=== PATIENT | female | born 1990 | race Caucasian/White ===

== ENCOUNTER 2019-05-15 03:18 | Emergency (ER) | payer BC ==
[~2019-05-15] VITALS: Ht 160 cm; Wt 56.7 kg
--- NOTE | 2019-05-15 03:30 | NUR ---
ED Nurse Note: Walk-in patient presents with complaints of muscle spasms of the bilateral legs 8/10 on pain scale.
[2019-05-15 03:31] VITALS: BP 97/70
--- NOTE | 2019-05-15 03:40 | Emergency Room Report ---
History of Present Illness General Chief Complaint: Pain Source: Patient Present Illness HPI Is a 28-year-old female with history of anxiety. She presents with chief complaint of left flank pain. Said it felt like her muscles throbbing aching in nature. Localized to the neck of her left leg. No trauma. Onset for 2 days. Yesterday was on the right side. Now to the left. No recent travel. No swelling. Pain is 8 out of 10. Allergies: Coded Allergies: No Known Allergies (Unverified , 05/15/19) Patient History Past Medical History: see triage record, old chart reviewed, psych hx Past Surgical History: none Pertinent Family History: none Social History: Denies: smoking Last Menstrual Period: 03/31/19 Now: No Immunizations: other Reviewed Nursing Documentation: PMH: Agreed; PSxH: Agreed Nursing Documentation-PMH Past Medical History: No Stated History Review of Systems Eye: Denies: eye pain, blurred vision ENT: Denies: ear pain, nose congestion, throat swelling Respiratory: Denies: cough, shortness of breath Cardiovascular: Denies: chest pain, palpitations Gastrointestinal: Denies: abdominal pain, diarrhea, nausea, vomiting Musculoskeletal: Denies: back pain, joint pain Skin: Denies: rash Neurological: Denies: headache, numbness Endocrine: Denies: increased thirst, increased urine Hematologic/Lymphatic: Denies: easy bruising All Other Systems: negative except mentioned in HPI Physical Exam Vital Signs Date Time Temp Pulse Resp B/P (MAP) Pulse Ox O2 Delivery O2 Flow Rate FiO2 05/15/19 03:21 97.5 88 18 97/70 (79) 99 Room Air Vitals unremarkable Sp02 EP Interpretation: reviewed, normal General Appearance: well appearing, no apparent distress, alert Head: normocephalic, atraumatic Eyes: bilateral eye PERRL, bilateral eye EOMI ENT: hearing grossly normal, normal pharynx Neck: full range of motion, supple, no meningismus Respiratory: chest non-tender, lungs clear, normal breath sounds Cardiovascular #1: regular rate, rhythm, no murmur Gastrointestinal: normal bowel sounds, non tender, no mass, no organomegaly, no bruit, non-distended Musculoskeletal: back normal, gait/station normal, normal range of motion Psychiatric: mood/affect normal Skin: warm/dry Medical Decision Making Diagnostic Impression: Primary Impression: Pain of left lower extremity ER Course Patient presents with left leg pain. She complaining of muscle cramping throbbing pain. I want to check blood work to make sure there is no rhabdo or potential for DVT. Patient refused blood work because she says she is scared of needles. She got up and left. She is competent to make that decision. Clinically and on physical exam, unlikely to be DVT. No evidence of any infection. Last Vital Signs Date Time Temp Pulse Resp B/P (MAP) Pulse Ox O2 Delivery O2 Flow Rate FiO2 05/15/19 03:31 97.5 78 18 97/70 99 Room Air Status: unchanged Disposition: AGAINST MEDICAL ADVICE Condition: Stable Referrals: NOT CHOSEN IPA/,REFERRING (PCP) Mikey Amador MD May 15, 2019 03:40
[2019-05-15] MEDS ORDERED: Ketorolac 30mg Inj IV ONE (03:45)
--- NOTE | 2019-05-15 03:49 | NUR ---
ELOPEMENT: Patient refused blood draw and to wait for discharge paper work. She also declined signing the AMA form before departing.
[2019-05-15 03:50] VITALS: BP 122/75
== END 2019-05-15 03:50 | disposition left against medical advice (07) ==
LOC: EMR 03:37
DX: M79.662 Pain in left lower leg (principal); F41.9 Anxiety disorder, unspecified; M54.2 Cervicalgia
CPT/HCPCS: 99282